=== PATIENT | female | born 1985 | race Caucasian/White ===

== ENCOUNTER → 2020-06-01 15:46 | Outpatient (CLI) | payer OTHER, SELFPAY ==
--- NOTE | ~2020-06-01 | MM_ITS ---
EXAMINATION: MM screening [facility] BI w reagan HISTORY: Baseline screening mammogram TECHNIQUE: Craniocaudal and mediolateral oblique 3-D tomosynthesis images were obtained and synthetic 2-D images were generated. CAD analysis was submitted and interpreted. COMPARISON: None, baseline BREAST PARENCHYMAL COMPOSITION: There are scattered areas of fibroglandular density. FINDINGS: RIGHT BREAST: There is no evidence of suspicious mass, calcification, or architectural distortion to suggest malignancy. LEFT BREAST: A subtle asymmetry is present in the anterior third of the upper breast 7 cm from the ni pple on the mediolateral oblique view (tomosynthesis image 31). IMPRESSION: 1. Subtle left breast asymmetry. 2. Additional mammographic views and possible breast ultrasound are recommended to evaluate for malig fatou and establish a baseline given that this is the first mammographic examination. BI-RADS Category 0: Incomplete: Needs additional imaging evaluation. Reviewed, dictated and finalized at location A. IMPRESSION: 1. Subtle left breast asymmetry. 2. Additional mammographic views and possible breast ultrasound are recommended to evaluate for malignancy and establish a baseline given that this is the fir st mammographic examination. BI-RADS Category 0: Incomplete: Needs additional imaging evaluation.
== END ==
PROVIDERS: PCP Family Medicine; Referring Provider Obstetrics & Gynecology Gynecology; Visit Provider Nurse Practitioner Family
DX: Z12.31 Encounter for screening mammogram for malignant neoplasm of breast (principal); R92.8 Other abnormal and inconclusive findings on diagnostic imaging of breast
CPT/HCPCS: 77063; 77067

== ENCOUNTER 2020-06-15 08:10 | Outpatient (CLI) | payer OTHER, SELFPAY ==
--- NOTE | ~2020-06-15 | MMUS_ITS ---
EXAMINATION: MM diagnostic mammo unilat LT, US breast LT limited HISTORY: Follow-up left breast asymmetry TECHNIQUE: Additional 3-D tomosynthesis images of the left breast were performed and synthetic 2-D im ages were generated. CAD analysis was submitted and interpreted. High resolution left breast ultrasou nd was performed. COMPARISON: 06/01/2020 BREAST PARENCHYMAL COMPOSITION: Breast composed of scattered areas of fibroglandular density FINDINGS: MAMMOGRAPHIC FINDINGS: There are no suspicious masses, calcifications or architectural distortion to suggest malignancy. ULTRASOUND: Left breast ultrasound: Normal heterogeneous echotexture without focal solid or cystic mass. IMPRESSION: 1. No mammographic or sonographic evidence for malignancy in the left breast. 2. Routine yearly screening mammogram and regular clinical breast examination are recommended. BI-RADS Category 1: Negative Reviewed, dictated and finalized at location A. IMPRESSION: 1. No mammographic or sonographic evidence for malignancy in the left breast. 2. Routine yearly screening mammogram and regular clinical breast examination a re recommended. BI-RADS Category 1: Negative
== END 2020-06-15 08:11 ==
PROVIDERS: PCP Family Medicine; Visit Provider Obstetrics & Gynecology Gynecology
DX: R92.8 Other abnormal and inconclusive findings on diagnostic imaging of breast (principal)
CPT/HCPCS: 76642; 77065

== ENCOUNTER → 2021-06-30 17:02 | Outpatient (CLI) | payer OTHER, SELFPAY ==
--- NOTE | ~2021-06-30 | MM_ITS ---
EXAMINATION: MM screening [facility] BI w reagan HISTORY: Screening TECHNIQUE: Craniocaudal and mediolateral oblique 3-D tomosynthesis images were obtained and synthetic 2-D images were generated. CAD analysis was submitted and interpreted. COMPARISON: 06/01/2020 BREAST PARENCHYMAL COMPOSITION: There are scattered areas of fibroglandular density. FINDINGS: There is no evidence of suspicious mass, calcification, or architectural distortion to sugg est malignancy in either breast. There has been no suspicious interval change. IMPRESSION: 1. No mammographic evidence of malignancy. 2. Recommend routine screening mammography in one year. BI-RADS Category 1: Negative Reviewed, dictated and finalized at location A.
== END ==
PROVIDERS: Visit Provider Obstetrics & Gynecology Gynecology
DX: Z12.31 Encounter for screening mammogram for malignant neoplasm of breast (principal)
CPT/HCPCS: 77063; 77067

== ENCOUNTER → 2022-10-27 16:38 | Outpatient (CLI) | payer OTHER, SELFPAY ==
--- NOTE | ~2022-10-27 | MM_ITS ---
EXAMINATION: MM screening [facility] BI w reagan HISTORY: Screening mammogram TECHNIQUE: Craniocaudal and mediolateral oblique 3-D tomosynthesis images were obtained and synthetic 2-D images were generated. CAD analysis was submitted and interpreted. COMPARISON: 06/30/2021 bilateral screening mammogram 06/15/2020 Diagnostic left mammogram and limited left breast ultrasound 06/01/2020 bilateral screening mammogram examination BREAST PARENCHYMAL COMPOSITION: There are scattered areas of fibroglandular density. FINDINGS: There is no evidence of suspicious mass, calcification, or architectural distortion to sugg est malignancy in either breast. There has been no suspicious interval change. IMPRESSION: 1. No mammographic evidence of malignancy. 2. Recommend routine screening mammography in one year. BI-RADS Category 1: Negative Reviewed, dictated and finalized at location A. [employer]
== END ==
PROVIDERS: PCP Obstetrics & Gynecology Gynecology; Visit Provider Obstetrics & Gynecology Gynecology
DX: Z12.31 Encounter for screening mammogram for malignant neoplasm of breast (principal)
CPT/HCPCS: 77063; 77067

== ENCOUNTER 2024-04-05 09:42 | Outpatient (CLI) | payer OTHER, SELFPAY ==
--- NOTE | ~2024-04-05 | US_ITS ---
EXAMINATION: US pelvic complete DATE: 04/05/2024 10:04 INDICATION: Enlarged uterus. TECHNIQUE: Multiple transabdominal sonographic images of the pelvis were obtained. COMPARISON: None. FINDINGS: The uterus measures 9.5 x 3.6 x 3.8 cm. There is no free fluid in the pelvis. The endometrial complex measures 5 mm in thickness. The right ovary measures 8.3 x 7.5 x 7.4 cm. There is a 7.3 cm hypoechoi c mass in right ovary The left ovary measures 6.9 x 5.6 x 6.5 cm. There is a 5.9 cm cyst in left ovar y. There is normal vascular flow in the ovaries. IMPRESSION: 1. 7.3 cm hypoechoic mass in right ovary, likely a hemorrhagic cyst. Pelvis ultrasound is recommended in 6-12 weeks. 2. 5.9 cm cyst in left ovary, likely benign. Reviewed, dictated and finalized at location E. IMPRESSION: 1. 7.3 cm hypoechoic mass in right ovary, likely a hemorrhagic cyst. Pelvis ult rasound is recommended in 6-12 weeks. 2. 5.9 cm cyst in left ovary, likely benign.
== END 2024-04-05 09:43 ==
LOC: MICIMG 09:42
PROVIDERS: PCP Physician Assistant; Visit Provider Nurse Practitioner
DX: R19.09 Other intra-abdominal and pelvic swelling, mass and lump (principal); N83.202 Unspecified ovarian cyst, left side
CPT/HCPCS: 76856

== ENCOUNTER 2024-05-05 18:00 | Emergency (ER) | payer OTHER, SELFPAY ==
[2024-05-05 18:04] VITALS: BP 118/83; RESP 16; TEMP 36.2; O2SAT 99
--- NOTE | 2024-05-05 18:22 | ED.NAVMDI ---
HPI - Nausea/Vomiting/Diarrhea General Chief complaint: Abdominal Pain Stated complaint: DIARRHEA/BLOOD IN STOOL Time Seen by Provider: 05/05/24 18:11 Source: patient and RN notes reviewed Mode of arrival: ambulatory Limitations: no limitations History of Present Illness HPI Narrative: Patient presents today complaining of bloody diarrhea. Last night around midnight she started experiencing some abdominal cramping and bright red bloody diarrhea constantly for approximately 3 hours. After this, the diarrhea stopped, but states she had liquid blood with clots per rectum for the next 2 hours. Denies nausea, vomiting, fever. Currently rates her abdominal pain 410. She did take a dose of Pepto-Bismol and Imodium. The Imodium did seem to stop her diarrhea. She called tele doc and was told to come to urgent care for further evaluation. Patient denies any pain with bowel movements. No history of anal fissures, hemorrhoids, diverticulitis, inflammatory bowel disease Related Data Home Medications Medication Instructions Recorded Confirmed aspirin 81 mg chewable tablet 81 mg PO DAILY 09/02/20 05/05/24 (Erma Chewable Low Dose Aspirin) spironolactone 100 mg tablet 100 mg PO DAILY 09/21/21 05/05/24 Allergies Allergy/AdvReac Type Severity Reaction Status Date / Time amoxicillin Allergy Unknown Rash Verified 05/05/24 18:12 Estrogens AdvReac Severe DVT/ PE Verified 05/05/24 18:12 Review of Systems Review of Systems: CONSTITUTIONAL: Denies body aches, fever, chills, or sweats. EYES: Denies visual changes, redness, or discharge. ENT: Denies rhinorrhea, congestion, sore throat, or otalgia. CARDIOVASCULAR: Denies chest pain, palpitations, or edema. RESPIRATORY: Denies cough or dyspnea. GASTROINTESTINAL: Denies nausea, vomiting. + abdominal pain, diarrhea, hematochezia GENITOURINARY: Denies dysuria or hematuria. SKIN: Denies rash, itching, or wounds. MUSCULOSKELETAL: Denies back pain, joint pain, or myalgia. NEUROLOGIC: Denies headache, numbness, tingling, or weakness. PSYCH: Denies depression or anxiety. FORMERLY [facility] Past Medical History Medical History Cervicalgia Displacement of intervertebral disc of lumbosacral region Metrorrhagia Pulmonary embolism Seborrheic keratoses Family History Family History Grandparent Family history of malignant neoplasm of breast Mother Family history of thyroid disease Social History Social History Smoking status: Never smoker Alcohol intake: never Lack of Transportation: No Lack of Food: Never True Current Housing: I Have Housing Concerned About Future Housing: No Difficulty Paying Gas/Electric Bills: No Difficulty Paying for Meds: No Currently Unemployed: No Education: Bachelor's Degree Difficulty w/ Childcare or Family Care: No Comments At time of signature, I have reviewed and agree with nursing past medical, surgical, social and family history unless otherwise noted. Please see nursing chart for further information. There is no relevant family history pertinent to the presenting complaint Exam Narrative: GENERAL: Well-appearing, well-nourished, and in no acute distress. HEAD: Normocephalic, atraumatic. EYES: EOMI. No redness or drainage. Conjunctivae normal. ENT: Mucous membranes pink and moist. NECK: Normal AROM. CHEST: No respiratory distress. Clear to auscultation. HEART: Regular rate and rhythm. No murmur appreciated. ABDOMEN: Soft, nontender, nondistended, normal active bowel sounds. EXTREMITIES: Normal range of motion. No edema. SKIN: Warm, dry, no rash. Capillary refill normal. Normal skin turgor. NEURO: No focal deficits. Alert and oriented x3. Gait steady. PSYCH: Normal affect. No signs of depression or anxiety. Course Course Level of Care: Expres
== END 2024-05-05 18:33 | disposition short-term general hospital (02) ==
PROVIDERS: Emergency Provider Nurse Practitioner; PCP Family Medicine
DX: K92.1 Melena (principal); R10.31 Right lower quadrant pain; R10.32 Left lower quadrant pain; Z86.718 Personal history of other venous thrombosis and embolism
CPT/HCPCS: 99212; 99213; G0463

== ENCOUNTER 2024-05-05 18:43 | Emergency (ER) | payer OTHER, SELFPAY ==
--- NOTE | ~2024-05-05 | CT_ITS ---
EXAMINATION: CT abdomen pelvis w con DATE: 05/05/2024 20:57 INDICATION: gi bleed TECHNIQUE: Computed tomography (CT) of the abdomen and pelvis was performed with 100 mL Omnipaque-350 intravenous contrast. Automated exposure control and iterative reconstruction technique were employe d. The dose-length product was 1148.06 mGy-cm. COMPARISON: None. FINDINGS: Lower thorax: Unremarkable Liver: Subcentimeter right lobe hypodensity, too small to characterize, most likely representing a cy st or hemangioma. Biliary/Gallbladder: Gallbladder is normal. No bile duct dilation. Pancreas: No mass or duct dilation. Spleen: Normal. Adrenals:No mass. Kidneys: No suspicious mass, obstructing stone, or hydronephrosis. Subcentimeter left midpole hypoden sity, too small to characterize, most likely representing a cyst. GI tract: Mild distal esophageal and gastric wall edema. No small or large bowel dilation. Normal hermelinda endix. Mesentery/Peritoneum: No ascites, mass, or free air. Retroperitoneum: No mass. Pelvis: Normal urinary bladder. Bilateral simple ovarian cysts, measuring 6.5 cm on the left and 7.9 cm on the right. No twisting of the ovarian vascular pedicles to suggest torsion. The retroverted alvin afua is shifted towards the left by the cysts. IUD, in good position. Soft Tissues: Soft tissues and body wall unremarkable. Bones: No acute osseous finding. IMPRESSION: Mild esophagitis/gastritis. 7.9 cm right and 6.5 cm left ovarian cysts, recommend pelvic ultrasound follow-up in 6-12 months. Reviewed, dictated and finalized at location K. IMPRESSION: Mild esophagitis/gastritis. 7.9 cm right and 6.5 cm left ovarian cysts, recommend pelvic ultrasound follow- up in 6-12 months.
[2024-05-05 18:47] VITALS: BP 121/78; PULSE 70; RESP 18; TEMP 36.4; O2SAT 100
--- NOTE | 2024-05-05 19:31 | ED.GIBLEED ---
HPI - GI Bleed General Chief complaint: GI Bleed Stated complaint: abd pain, blood in stool Time Seen by Provider: 05/05/24 19:24 History of Present Illness HPI Narrative: Patient is a healthy 39-year-old female with history of control induced PE/DVT, on baby aspirin here with abdominal pain and bloody diarrhea. She states that last night around 9:00 a.m. she began having diffuse abdominal cramping pains. She notes that it felt like she had to have diarrhea, attempted to go to the bathroom several times and was eventually able to have a loose bowel movement around 11:00 p.m.. She had several bowel movements throughout the night last night and again this morning. She had blood in her stool which she describes as bright red with small pea-sized clots. She notes that the diarrhea has significantly improved after taking Imodium at home, she continues to have some bloody discharge from her rectum. She denies any pain with defecation. She denies any fever, chills. No sick contacts. No cough, congestion. She did attend a banquet over the weekend and is unsure if she could have had food poisoning from this. No one else is sick that she is aware of that attended this event. She denies any recent travel, last travel was in February. No prior colonoscopy. No prior history of similar events. No personal or family history of IBD or colon cancer that she is aware of. Related Data Home Medications Medication Instructions Recorded Confirmed aspirin 81 mg chewable tablet 81 mg PO DAILY 09/02/20 05/05/24 (Erma Chewable Low Dose Aspirin) spironolactone 100 mg tablet 100 mg PO DAILY 09/21/21 05/05/24 Allergies Allergy/AdvReac Type Severity Reaction Status Date / Time amoxicillin Allergy Unknown Rash Verified 05/05/24 18:12 Estrogens AdvReac Severe DVT/ PE Verified 05/05/24 18:12 Review of Systems Review of Systems: All systems reviewed & are unremarkable except as noted in HPI and below PMFSH Past Medical History Medical History Cervicalgia Displacement of intervertebral disc of lumbosacral region Metrorrhagia Pulmonary embolism Seborrheic keratoses Family History Family History Grandparent Family history of malignant neoplasm of breast Mother Family history of thyroid disease Social History Social History Smoking status: Never smoker Alcohol intake: never Lack of Transportation: No Lack of Food: Never True Current Housing: I Have Housing Concerned About Future Housing: No Difficulty Paying Gas/Electric Bills: No Difficulty Paying for Meds: No Currently Unemployed: No Education: Bachelor's Degree Difficulty w/ Childcare or Family Care: No Exam Narrative: GENERAL: Well-appearing, well-nourished, and in no acute distress. HEAD: Normocephalic, atraumatic. EYES: PERRLA and EOMI. ENT: Nares clear. Mucous membranes moist. NECK: Supple. CHEST: Clear to auscultation. No respiratory distress. HEART: Regular rate and rhythm. Normal peripheral pulses. ABDOMEN: Soft, mild lower abdominal tenderness without rebound or guarding, nondistended. EXTREMITIES: Normal range of motion. No edema. SKIN: Warm, dry, no rash. NEURO: Alert and oriented x3. PSYCH: Normal mood and affect. Course Course Emergency Course: Chart review performed, patient here from urgent care with abdominal pain and blood in her stool. No blood thinner use. Triage vitals normal. Urgent care note reviewed from today. She was seen for bloody diarrhea sent into the emergency department for further evaluation. She does appear to be on a baby aspirin. Patient seen evaluated, nontoxic appearing. Concern for infectious, less likely ischemic colitis. Will do basic lab work, IV fluids, Protonix, CT abdomen pelvis. Patient agreeable to our plan. CBC
[2024-05-05 19:52] LABS: Basophils Absolute Auto 0.1 K/mm3 (0.0-0.1); Basophils Percent Auto 0.7 % (0.2-1.2); Eosinophils Absolute Auto 0.5 K/mm3 (0-0.3); Eosinophils Percent Auto 5.3 % (0-4.4); Hematocrit 43.7 % (37.0-47.0); Immature Granulocyte Absolute 0.04 K/mm3 (0.00-0.031); Immature Granulocyte Percent A 0.4 % (0-0.5); Lymphocytes Absolute Auto 2.73 K/mm3 (0.9-3.2); Lymphocytes Percent Auto 29.7 % (18.3-44.2); Mean Corpuscular HGB Conc 34.3 g/dl (32-36); Mean Corpuscular Hemoglobin 29.1 pg (26-34); Mean Corpuscular Volume 84.7 fl (80-100); Mean Platelet Volume 9.5 fl (7.4-10.4); Monocytes Absolute Auto 0.6 K/mm3 (0.1-0.6); Monocytes Percent Auto 6.2 % (2.6-8.5); Neutrophils Absolute Auto 5.3 K/mm3 (1.3-6.7); Neutrophils Percent Auto 57.7 % (45.5-73.1); Platelet Count Result 331 k/mm3 (150-375); Red Blood Count 5.16 M/mm3 (4.2-5.4); Red Cell Distribution Width 11.8 % (11.5-14.5); White Blood Count 9.2 K/mm3 (4.5-10.0)
[2024-05-05] MEDS: LACTATED RINGERS 1,000 ML 999 ML IV CONT (19:54)
[2024-05-05] MEDS: ONDANSETRON INJ 4 MG/2 ML VIAL IV PUSH (19:54)
[2024-05-05] MEDS: PANTOPRAZOLE SODIUM IV 40 MG VIAL IV PUSH (19:54)
[2024-05-05 20:01] LABS: Prothrombin Time 13.3 Seconds (11.1-14.7)
[2024-05-05 20:02] LABS: Partial Thromboplastin Time 28.1 Seconds (22.3-36.8)
[2024-05-05 20:07] LABS: Lactic Acid Reflex 0.8 mmol/L (0.7-2.0)
[2024-05-05 20:08] LABS: Alanine Aminotransferase 16 U/L (6-35); Albumin Level 4.6 g/dL (3.5-5.1); Alkaline Phosphatase 66 U/L (38-126); Anion Gap 8 mmol/L (4-12); Aspartate Amino Transferase 18 U/L (14-36); Bilirubin,Total 0.5 mg/dL (0.2-1.3); Blood Urea Nitrogen 9 mg/dL (7-17); Calcium 8.9 mg/dL (8.4-10.2); Carbon Dioxide 23 mmol/L (22-30); Chloride 106 mmol/L (98-107); Estimated CRCL calculation 71 ml/min; Estimated Glomerular Filt Rate 55; Glucose 90 mg/dL (65-110); Lipase 72 U/L (23-300); Magnesium 2.2 mg/dL (1.6-2.3); Potassium 3.6 mmol/L (3.4-5.0); Sodium 137 mmol/L (137-145)
[2024-05-05 20:31] LABS: Influenza A QL RT-PCR Negative (Negative); Influenza B QL RT-PCR Negative (Negative); RSV RNA, RT-PCR Negative (Negative); SARS-CoV-2 RNA PCR Negative (Negative)
[2024-05-05 20:53] LABS: Appearance Urine Clear (Clear); Bilirubin Urine Negative (Negative); Blood Urine Negative (Negative); Color Urine Yellow (Yellow); Glucose Urine UA Negative (Negative); Ketones Urine Negative (Negative); Leukocyte Esterase Ur Negative LEU/UL (Negative); Nitrate Urine Negative (Negative); Protein Urine Negative (Negative); Specific Grav Ur 1.014 (1.001-1.035); Urobilinogen Urine 0.2 mg/dL (<2.0)
[2024-05-05 21:04] LABS: Add Urine Microscopic? NO
[2024-05-05 21:12] LABS: Pregnancy On Board Control Positive; Urine Pregnancy Test Negative
[2024-05-05 22:04] VITALS: BP 120/82; PULSE 76; RESP 15; O2SAT 100
== END 2024-05-05 22:05 | disposition home or self-care (01) ==
PROVIDERS: Emergency Provider Student in an Organized Health Care Education/Training Program; PCP Family Medicine
DX: R19.7 Diarrhea, unspecified (principal); R10.84 Generalized abdominal pain; Z20.822 Contact with and (suspected) exposure to COVID-19; Z86.718 Personal history of other venous thrombosis and embolism; Z79.82 Long term (current) use of aspirin; Z79.899 Other long term (current) drug therapy; K20.90 Esophagitis, unspecified without bleeding; K29.70 Gastritis, unspecified, without bleeding; N83.202 Unspecified ovarian cyst, left side; N83.201 Unspecified ovarian cyst, right side
CPT/HCPCS: 36415; 74177; 80053; 81003; 81025; 83605; 83690; 83735; 85025; 85610; 85730; 86850; 86900; 86901; 87637; 96361; 96374; 96375; 99284; C9113; J2405; J7120; Q9967

== ENCOUNTER 2024-07-09 13:35 | Outpatient (CLI) | payer OTHER, SELFPAY ==
--- NOTE | ~2024-07-09 | MM_ITS ---
EXAMINATION: MM screening [facility] BI w [facility] HISTORY: Screening TECHNIQUE: Craniocaudal and mediolateral oblique 3-D tomosynthesis images were obtained and synthetic 2-D images were generated. CAD analysis was submitted and interpreted. COMPARISON: Comparison to multiple prior studies sequentially, with oldest reviewed study dated 05/2020. BREAST PARENCHYMAL COMPOSITION: Not dense: There are scattered areas of fibroglandular density. FINDINGS: There is no evidence of suspicious mass, calcification, or architectural distortion to sugg est malignancy in either breast. There has been no suspicious interval change. IMPRESSION: 1. No mammographic evidence of malignancy. 2. Recommend routine screening mammography in one year. BI-RADS Category 1: Negative Reviewed, dictated and finalized at location B.
--- NOTE | ~2024-07-09 | US_ITS ---
EXAMINATION: US pelvic complete DATE: 07/09/2024 13:54 INDICATION: Enlarged uterus TECHNIQUE: Multiple transabdominal and endovaginal sonographic images of the pelvis were obtained. COMPARISON: 04/05/2024 FINDINGS: The uterus measures 8.7 x 3.1 x 4.5 cm. The endometrial complex measures 2-3 mm in thickness. Linear echogenic and shadowing IUD seen within the endometrial canal. The right ovary measures 9.5 x 6.4 x 9.7 cm. The left ovary measures 7.6 x 5.6 x 6.3 cm. There are large simple appearing anechoic cysts i n both ovaries measuring 8.6 cm in maximal diameter on the right and 6.4 cm in maximal diameter on th e left. There is additional 2.4 cm anechoic cyst in the left ovary. Vascular flow identified in both ovaries on color Doppler. There is no free fluid in the pelvis. IMPRESSION: 1. Large bilateral simple appearing ovarian cysts. Recommend annual ultrasound follow-up. 2. IUD in expected position. Reviewed, dictated and finalized at location A.
== END 2024-07-09 13:36 ==
PROVIDERS: PCP Physician Assistant; Visit Provider Nurse Practitioner
DX: Z12.31 Encounter for screening mammogram for malignant neoplasm of breast (principal); N85.2 Hypertrophy of uterus; N83.201 Unspecified ovarian cyst, right side; N83.202 Unspecified ovarian cyst, left side
CPT/HCPCS: 76856; 77063; 77067

== ENCOUNTER 2024-11-03 17:00 | Emergency (ER) | payer OTHER, SELFPAY ==
--- NOTE | ~2024-11-03 | XR_ITS ---
EXAMINATION: XR chest 2V Exam Date/Time: 11/03/2024 17:34 [employer] HISTORY: cough, sob x 1 week, cough with inspiration heavy chest Comparison: 12/11/2018. RESULT: Lines, tubes, and devices: None. Lungs and pleura: Clear. Cardiomediastinal silhouette: Stable. Other: No acute osseous or upper abdominal finding. IMPRESSION: No acute cardiopulmonary process. Reviewed, dictated and finalized at location K. PPER SOFT PLASTIC
--- NOTE | 2024-11-03 17:18 | ED_ITS ---
HPI - URI/Sore Throat General Chief Complaint: Upper Respiratory Infection Stated Complaint: Chest Congestion Time Seen by Provider: 11/03/24 17:18 Source: patient Mode of arrival: ambulatory Limitations: no limitations History of Present Illness HPI Narrative: Ruth is a 39-year-old female patient presenting to the clinic today with complaints of cough and chest congestion for the past 4-5 days. She reports she did have fever 102? F. She contacted tele doc 2 days ago and was given prescription for Tamiflu is a felt that she may have the flu. No flu testing was completed. She is concerned today as she is coming in to make sure she did have pneumonia. She reports that she is having chest heaviness. Denies any chest pain or sore throat. MD elicited complaint: sore throat and nasal congestion Related Data Home Medications Medication Instructions Recorded Confirmed aspirin 81 mg chewable tablet 81 mg PO DAILY 09/02/20 07/18/24 (Erma Chewable Low Dose Aspirin) spironolactone 100 mg tablet 100 mg PO DAILY 09/21/21 07/18/24 Allergies Allergy/AdvReac Type Severity Reaction Status Date / Time amoxicillin Allergy Unknown Rash Verified 07/18/24 08:03 Estrogens AdvReac Severe DVT/ PE Verified 07/18/24 08:03 Review of Systems Review of Systems: Pertinent positives per HPI. Patient denies any fever, chills, rash, headache, visual changes, dizziness, chest pain, palpitations, nausea, vomiting, diarrhea, constipation, abdominal pain, or any urinary issues. FORMERLY [facility], [facility] Past Medical History Medical History Cervicalgia Displacement of intervertebral disc of lumbosacral region Metrorrhagia Pulmonary embolism Seborrheic keratoses Family History Family History Grandparent Family history of malignant neoplasm of breast Mother Family history of thyroid disease Social History Social History Smoking status: Never smoker Alcohol intake: never Lack of Transportation: No Lack of Food: Never True Current Housing: I Have Housing Concerned About Future Housing: No Difficulty Paying Gas/Electric Bills: No Difficulty Paying for Meds: No Currently Unemployed: No Education: Bachelor's Degree Difficulty w/ Childcare or Family Care: No Comments At the time of my signature, I reviewed and agree with the nursing past medical, surgical, social, and family history. There is no relevant family history pertinent to the patient complaint. Exam Narrative: General: Well-developed, well nourished, in no apparent distress Head: Normocephalic, atraumatic Eyes: Pupils equally round and reactive to light bilaterally, EOM intact, sclera and conjunctive clear, no discharge, lids normal Ears: TMs intact and clear, ear canals clear, no drainage, grossly hearing normal. Nose: Nares patent, clear nasal discharge, no inflammation, no sinus tenderness. Mouth: Oral pharynx without lesions or masses, good dentition, MMM. Neck: Supple, trachea midline, no enlargement of anterior or posterior cervical nodes, no thyroid masses or goiter palpable. Cardio: Regular rate and rhythm, s1 and s2 normal, no murmur appreciated. Resp: Clear to auscultation bilaterally, no rhonchi, rales, wheezing or rubs Course Course Emergency Course: Portions of this record may have been created with voice recognition software. Level of Care: Express Care Visit Vital Signs Vital signs: Vital signs reviewed MDM - URI/Sore Throat MDM Narrative Medical decision making narrative: At the time of visit patient is resting comfortably on the exam table. Patient appears to be nontoxic. Diagnostics: Chest x-ray was performed is negative for any sign of pneumonia. Plan: I suspect patient has URI with cough and congestion. Prescription for albuterol and prednisone was sent to the pharmacy. Recommend patient go the emergency room if her symptoms worsen as she may need further evaluation as she does have history of PE. Supportive measures were discussed with the patient and they voiced understanding discharge instructions and agrees to treatment plan. Return precautions reviewed Differential Diagnosis Differential diagnosis: Likely upper respiratory infection, otitis media, sinusitis, viral infection, bronchitis, influenza, pharyngitis and other (COVID) Discharge Plan Discharge Clinical Impression: Upper respiratory infection with cough and congestion Patient Disposition: Home, Self-Care Condition: Stable Instructions: Antibiotic Form, Cold Symptoms (ED) Additional Instructions: Chest x-rays negative for any sign pneumonia. Take prescription medications only as prescribed-albuterol inhaler and prednisone. Increase fluids and stay well hydrated Tylenol/motrin for pain/fever Flonase and OTC antihistamines as directed Vicks vapor rub to open sinuses Sinus rinses for congestion Cepacol spray, cough drops, throat lozenges, warm tea with honey/lemon, gargle salt water to soothe throat BRAT diet for diarrhea Clear liquids x 24 hours then advance as tolerated for nausea/vomiting Go to the ED if you develop a worsening in your condition- high fever not controlled by Tylenol or Motrin, dehydration, weakness, lethargy, shortness of breath, or chest pain. Follow up with your PCP in 3-5 days if symptoms persist. Prescriptions: New prednisone 20 mg tablet 40 mg PO DAILY 5 Days Qty: 10 0RF albuterol sulfate 90 mcg/actuation HFA aerosol inhaler 2 puff inhalation Q4-6H PRN (Reason: shortness of breath or wheezing) 30 Days Qty: 8.5 0RF No Action aspirin [Erma Chewable Aspirin] 81 mg tablet,chewable 81 mg PO DAILY spironolactone 100 mg tablet 100 mg PO DAILY alprazolam [Xanax] 0.25 mg tablet 0.25 mg PO TID PRN (Reason: flying) Qty: 30 1RF oxybutynin chloride 5 mg tablet extended release 24hr 5 mg PO DAILY Qty: 30 0RF Rx Instructions: NEEDS APPOINTMENT FOR FURTHER REFILLS sertraline 100 mg tablet 100 mg PO .qd Qty: 90 1RF valacyclovir 1 gram tablet See Rx Instructions .ROUTE .COMPLEX Qty: 30 2RF Dose Instruction: TAKE 2 TABLETS BY MOUTH TWICE DAILY FOR 1 DAY NEEDED FOR ACUTE OUTBREAK Rx Instructions: TAKE 2 TABLETS BY MOUTH TWICE DAILY FOR 1 DAY NEEDED FOR ACUTE OUTBREAK famotidine 20 mg tablet 20 mg PO BID Qty: 60 1RF Follow-up/Referrals: Josefina Cortez MD [Primary Care Provider] - Stand Alone Forms: Work/School Release IP Time of Disposition: 17:50 Quality NIHSS Nursing Documentation ED NIHSS nursing documentation: reviewed/agree
[2024-11-03 17:19] VITALS: BP 122/78; PULSE 76; RESP 16; TEMP 36.7; O2SAT 99
== END 2024-11-03 18:54 | disposition home or self-care (01) ==
PROVIDERS: Emergency Provider Nurse Practitioner Family; PCP Family Medicine
DX: J06.9 Acute upper respiratory infection, unspecified (principal); R05.9 Cough, unspecified; Z86.711 Personal history of pulmonary embolism; Z79.82 Long term (current) use of aspirin
CPT/HCPCS: 71046; 99213; G0463

== ENCOUNTER 2025-04-24 14:49 | Outpatient (CLI) | payer OTHER, SELFPAY ==
--- NOTE | ~2025-04-24 | US_ITS ---
US pelvic complete Ordering provider: Jessica Nolasco, [employer]ATOR History: . Unspecified ovarian cyst, right left side . Comparison: None. Technique: Transabdominal and endovaginal ultrasound of the pelvis (Doppler ultrasound interrogation techniques used as needed for this exam.) FINDINGS: CERVIX: Normal. UTERUS: Measures 9.9x 3.6x 1.4 cm in length which is within normal limits and is anteverted. No myom etrial masses. ENDOMETRIUM: Normal in thickness measuring . mm. (IUD is seen in the endometrial cavity. No endometri al masses, cysts or fluid. CUL DE SAC: No free fluid. RIGHT OVARY: Normal in size measuring 8x 8.3x 7.8 Normal echotexture. Doppler vascular flow present. Anechoic cyst is seen measuring 7.4 x 7.6 x 7.2 cm LEFT OVARY: Normal in size measuring 6.8x 5.9x 6.6 cm. Normal echotexture. Doppler vascular flow pres ent. Anechoic cyst is seen measuring 6.3 x 5.4 x 5.8 cm. ADNEXA: Normal. No mass. IMPRESSION: Bilateral large ovarian cysts. Otherwise, normal pelvic ultrasound. Reviewed, dictated and finalized at location A.
== END 2025-04-24 14:50 | disposition home or self-care (01) ==
LOC: MICIMG 14:50
PROVIDERS: PCP Nurse Practitioner; Visit Provider Nurse Practitioner
DX: N83.201 Unspecified ovarian cyst, right side (principal); N83.202 Unspecified ovarian cyst, left side
CPT/HCPCS: 76856

== ENCOUNTER 2025-07-16 00:46 | Day surgery (SDC) | payer OTHER, SELFPAY ==
[2025-07-02 14:29] VITALS: BMI 29.2
[2025-07-16 08:40] VITALS: BP 106/70; PULSE 74; RESP 18; TEMP 36.2; O2SAT 98; BMI 28.4
[2025-07-16 08:44] LABS: BEDSIDEPREGUCG Negative (Negative)
[2025-07-16] MEDS: LACTATED RINGERS 1,000 ML 150 ML IV CONT (08:47)
--- NOTE | 2025-07-16 09:12 | WPDANESEPPF ---
Anes - Initial Pre Proc Eval Procedure: Operation Date: 07/16/25 10:00 Proposed Procedures p Diagnostic Colonoscopy - Venancio oVgt MD Date/Time: 07/16/25 09:12 Surgeon: Venancio Vogt MD Pre Op Diagnosis: Other specified diseases of anus and rectum Patient Data Age: 40 Gender: F Height: 1.65 m Weight: 77.6 kg Last Vital Signs Temp 36.2 C L 07/16/25 08:40 Pulse 74 07/16/25 08:40 Resp 18 07/16/25 08:40 BP 106/70 07/16/25 08:40 Pulse Ox 98 07/16/25 08:40 O2 Del Method Room Air 07/16/25 08:40 Allergies Allergy/AdvReac Type Severity Reaction Status Date / Time amoxicillin Allergy Unknown Rash Verified 07/16/25 08:38 Estrogens AdvReac Severe DVT/ PE Verified 07/16/25 08:38 Home Medications ?Medication ?Instructions ?Recorded ?Confirmed ?Type aspirin 81 mg chewable tablet 81 mg PO DAILY 09/02/20 07/16/25 History (Erma Chewable Low Dose Aspirin) spironolactone 100 mg tablet 100 mg PO DAILY 09/21/21 07/16/25 History alprazolam 0.25 mg tablet (Xanax) 0.25 mg PO TID PRN flying #30 tabs 02/27/22 07/02/25 Rx valacyclovir 1 gram tablet See Rx Instructions .Route 08/18/24 07/02/25 Rx .COMPLEX #30 tabs famotidine 20 mg tablet See Rx Instructions .Route 05/11/25 07/16/25 Rx .COMPLEX #60 tabs sertraline 100 mg tablet 100 mg PO .qd #90 tabs 06/15/25 07/16/25 Rx tirzepatide (weight loss) 2.5 2.5 mg subcut WEEKLY 07/02/25 07/02/25 History mg/0.5 mL subcutaneous pen injector (Zepbound) Laboratory Tests 07/16/25 08:40 POC Urine HCG, Qual Negative (Negative) Patient hx anesthesia problems: none Family hx anesthesia problems: none Results Review: All pre-operative results and documents have been reviewed as part of the pre-operative evaluation. [facility] Past Medical History Medical History Cervicalgia Metrorrhagia Displacement of intervertebral disc of lumbosacral region Pulmonary embolism Seborrheic keratoses Family History Family History Grandparent Family history of malignant neoplasm of breast Mother Family history of thyroid disease Social History Social History Smoking status: Never smoker Alcohol intake: never Substance use: never Substance use type: does not use Lack of Transportation: No Lack of Food: Never True Current Housing: I Have Housing Concerned About Future Housing: No Difficulty Paying Gas/Electric Bills: No Difficulty Paying for Meds: No Currently Unemployed: No Education: Bachelor's Degree Difficulty w/ Childcare or Family Care: No Anes - Eval Final PreProcedure Day of Procedure 07/16/25 09:12 Patient weight: overweight Heart: regular rate and rhythm Lungs: clear to auscultation Airway: Mallampati scale class II Neurological: alert and oriented Last oral intake: >/= 8 hours ASA classification: II Emergent: no Anesthetic plan: proceed Anesthesia type and monitoring: general GIVS and standard monitoring Results Review: All pre-operative results and documents have been reviewed as part of the pre-operative evaluation. Informed Consent: The patient's anesthetic plan and its attendant risks and benefits were discussed with the patient/family/POA. Questions were solicited and answers provided to the satisfaction of the patient/family/POA.
--- NOTE | 2025-07-16 09:47 | PM.IMHP ---
H&P: HPI History of Present Illness Date/Time: 07/16/25 09:47 Chief Complaint: Rectal bleeding Narrative: Approximately one month ago, the patient experienced a sensation of rectal prolapse with bright red blood per rectum. This was a single episode that has not recurred. The patient is being referred for a colonoscopy today. Review of Systems Review of Systems: All systems reviewed & are unremarkable except as noted in HPI and below PMFSH Past Medical History Medical History Cervicalgia Metrorrhagia Displacement of intervertebral disc of lumbosacral region Pulmonary embolism Seborrheic keratoses Family History Family History Grandparent Family history of malignant neoplasm of breast Mother Family history of thyroid disease Social History Social History Smoking status: Never smoker Alcohol intake: never Substance use: never Substance use type: does not use Lack of Transportation: No Lack of Food: Never True Current Housing: I Have Housing Concerned About Future Housing: No Difficulty Paying Gas/Electric Bills: No Difficulty Paying for Meds: No Currently Unemployed: No Education: Bachelor's Degree Difficulty w/ Childcare or Family Care: No Meds Home Medications and Allergies Home Medications ?Medication ?Instructions ?Recorded ?Confirmed ?Type aspirin 81 mg chewable tablet 81 mg PO DAILY 09/02/20 07/16/25 History (Erma Chewable Low Dose Aspirin) spironolactone 100 mg tablet 100 mg PO DAILY 09/21/21 07/16/25 History alprazolam 0.25 mg tablet (Xanax) 0.25 mg PO TID PRN flying #30 tabs 02/27/22 07/02/25 Rx valacyclovir 1 gram tablet See Rx Instructions .Route 08/18/24 07/02/25 Rx .COMPLEX #30 tabs famotidine 20 mg tablet See Rx Instructions .Route 05/11/25 07/16/25 Rx .COMPLEX #60 tabs sertraline 100 mg tablet 100 mg PO .qd #90 tabs 06/15/25 07/16/25 Rx tirzepatide (weight loss) 2.5 2.5 mg subcut WEEKLY 07/02/25 07/02/25 History mg/0.5 mL subcutaneous pen injector (Zepbound) Allergies Allergy/AdvReac Type Severity Reaction Status Date / Time amoxicillin Allergy Unknown Rash Verified 07/16/25 08:38 Estrogens AdvReac Severe DVT/ PE Verified 07/16/25 08:38 Vital Signs Vital Signs - 24 hr 07/16/25 08:40 Temperature 97.2 F L Pulse Rate 74 Respiratory Rate 18 Blood Pressure 106/70 Pulse Oximetry 98 Oxygen Delivery Room Air Exam Const: General: cooperative and healthy appearing Resp: Effort & Inspection: normal respiratory effort and able to speak in complete sentences Auscultation: clear to auscultation bilaterally Cardio: Rate: regular rate Rhythm: regular rhythm GI: Inspection: normal to inspection GI Palp: No No hepatosplenomegaly present Auscultation: normal bowel sounds Rectal Exam: deferred Skin: General skin exam: normal color Psych: Appearance: grossly normal Mental Status: mental status grossly normal Assessment and Plan Assessment and plan (1) Blood in stool: Code(s): K92.1 - Melena Status: Acute Assessment and Plan: The patient is deemed a good candidate for the procedure. Consent signed. Will proceed.
[2025-07-16 10:10] VITALS: BP 101/58; PULSE 72; RESP 18; O2SAT 100
[2025-07-16 10:20] VITALS: BP 110/65; PULSE 66; RESP 20; O2SAT 100
[2025-07-16 10:30] VITALS: BP 107/74; PULSE 63; RESP 18; O2SAT 100
== END 2025-07-16 10:39 | disposition home or self-care (01) ==
PROVIDERS: Anesthesiology; PCP Family Medicine; Referring Provider Student in an Organized Health Care Education/Training Program; Visit Provider Internal Medicine Gastroenterology
PROC: 0DJD8ZZ Inspection of Lower Intestinal Tract, Via Natural or Artificial Opening Endoscopic (ICD-10-PCS; CPT 45378; principal; 2025-07-16 10:00)
DX: K92.1 Melena (principal); L82.1 Other seborrheic keratosis; Z79.82 Long term (current) use of aspirin; Z79.85 Long-term (current) use of injectable non-insulin antidiabetic drugs; Z86.711 Personal history of pulmonary embolism; Z80.3 Family history of malignant neoplasm of breast
CPT/HCPCS: 45378; J2704; J7120

== ENCOUNTER 2025-08-21 12:38 | Outpatient (CLI) | payer OTHER, SELFPAY ==
--- NOTE | ~2025-08-21 | MM_ITS ---
EXAMINATION: MM screening [facility] BI w reagan HISTORY: Screening TECHNIQUE: Craniocaudal and mediolateral oblique 3-D tomosynthesis images were obtained and synthetic 2-D images were generated. CAD analysis was submitted and interpreted. COMPARISON: Comparison to multiple prior studies sequentially, with oldest reviewed study dated 06/01/2020. BREAST PARENCHYMAL COMPOSITION: Dense: The breasts are heterogeneously dense, which may obscure small masses FINDINGS: There is no evidence of suspicious mass, calcification, or architectural distortion to suggest malignancy in either breast. There has been no suspicious interval change. IMPRESSION: 1. No mammographic evidence of malignancy. 2. Recommend routine screening mammography in one year. BI-RADS Category 1: Negative Reviewed, dictated and finalized at location B.
== END 2025-08-21 12:39 | disposition home or self-care (01) ==
PROVIDERS: PCP Family Medicine; Visit Provider Obstetrics & Gynecology Gynecology
DX: Z12.31 Encounter for screening mammogram for malignant neoplasm of breast (principal)
CPT/HCPCS: 77063; 77067